=== PATIENT | male | born 1975 | race African-American/Black ===

== ENCOUNTER 2022-11-24 16:27 | Emergency (ER) | payer BC ==
[~2022-11-24] VITALS: Ht 177.8 cm; Wt 99.8 kg
[2022-11-24] MEDS ORDERED: AMLODIPINE BESYLATE 10 MG TAB PO ONE (16:45)
[2022-11-24] MEDS ORDERED: ACETAMINOPHEN 325 MG TAB PO ONE ×2 (16:45→17:30)
[2022-11-24] MEDS ORDERED: ASPIRIN 81 MG CHEW TAB ONE (16:47)
[2022-11-24 16:50] LABS: BASOPHILS % 0.3 % (0.0-1.0); EOSINOPHILS % 0.2 % (0.0-6.0); HEMATOCRIT 47.9 % (38.2-49.6); HEMOGLOBIN 16.4 g/dL (14.0-18.0); LYMPHOCYTES # (AUTO) 1.1 (1.0-3.2); MEAN CORPUSCULAR HEMOGLOBIN 29.7 pg (28-32); MEAN CORPUSCULAR HGB CONC 34.2 g/dL (31-35); MEAN CORPUSCULAR VOLUME 86.8 fL (81-99); MONOCYTES # (AUTO) 0.7 (0.2-0.8); MONOCYTES % 6.7 % (4.4-11.3); NEUTROPHILS # (AUTO) 8.2 (2.1-6.9); NEUTROPHILS % 81.5 % (38.7-80.0); PLATELET COUNT 196 x10e3/uL (140-360); RED BLOOD COUNT 5.52 x10e6/uL (4.3-5.7); RED CELL DISTRIBUTION WIDTH 13.6 % (11.7-14.4)
[2022-11-24] MEDS ORDERED: NITROGLYCERIN 0.4 MG SUBL ONE (16:52)
[2022-11-24] MEDS ORDERED: NITROGLYCERIN 0.4 MG SUBL SL ONE (17:00)
[2022-11-24] MEDS ORDERED: CLOPIDOGREL BISULFATE 75 MG TAB PO ONE (17:00)
[2022-11-24] MEDS ORDERED: NITROGLYCERIN/D5W 200 MCG/ML 250 ML IV SCH (17:00)
[2022-11-24] MEDS ORDERED: ASPIRIN 325 MG TAB PO ONE (17:00)
[2022-11-24] MEDS ORDERED: HEPARIN SOD (PORCINE) 5,000 UNIT/ML VIAL IV ONE (17:00)
[2022-11-24] MEDS ORDERED: DEXTROSE 5% IV ONE (17:00)
[2022-11-24] MEDS ORDERED: HEPARIN SOD IV ONE (17:00)
[2022-11-24] MEDS ORDERED: FENTANYL CITRATE/PF 100MCG/2 ML INJ IV ONE (17:00)
[2022-11-24 17:05] LABS: INR 0.9; PROTHROMBIN TIME 12.6 seconds (11.9-14.5)
[2022-11-24 17:06] LABS: PARTIAL THROMBOPLASTIN TIME 26.8 seconds (23.8-35.5)
[2022-11-24] MEDS ORDERED: HEPARIN SOD (PORCINE) 5,000 UNIT/ML VIAL ONE (17:06)
[2022-11-24 17:10] LABS: ANION GAP 13.6 mmol/L (8-16); CALCIUM 9.7 mg/dL (8.4-10.2); CREATININE, SERUM 1.16 mg/dL (0.72-1.25); POTASSIUM 3.6 mmol/L (3.5-5.1)
[2022-11-24 17:50] VITALS: BP 175/102; PULSE 74; RESP 18; O2SAT 100
== END 2022-11-24 17:30 | disposition other institution (70) ==
LOC: ER 16:34
DX: R07.9 Chest pain, unspecified (principal); I21.3 ST elevation (STEMI) myocardial infarction of unspecified site; I10 Essential (primary) hypertension; E78.5 Hyperlipidemia, unspecified; Z20.822 Contact with and (suspected) exposure to COVID-19; R94.31 Abnormal electrocardiogram [ECG] [EKG]
CPT/HCPCS: 36415; 71045; 80048; 85025; 85610; 85730; 93005; 99284; J1644; J3010; U0002